=== PATIENT | female | born 1980 | race Caucasian/White ===

== ENCOUNTER 2023-08-14 00:38 | Emergency (ER) | payer BC, SELFPAY ==
[2023-08-14 00:49] VITALS: BP 155/104; PULSE 99; RESP 18; TEMP 36.6; O2SAT 98; BMI 38.4
--- NOTE | 2023-08-14 02:12 | ED.GENADULT ---
HPI - General Adult General Chief complaint: Hypertension Stated complaint: High Blood Pressure Time Seen by Provider: 08/14/23 00:44 History of Present Illness HPI narrative: hx of hypertension, on lisinopril. starting Tuesday started feeling woozy and a headache, seen in UC on Tuesday and dx with a migraine. tonight was checking BP due to it being elevated on Tuesday and got reading 181 /131, multiple other high readings. patient called triage line and was advised to be seen in ED. c/o headache. patient has chronic migrains but states this doesn't feel like her typical migraine symptoms 43-year-old woman presenting to the emergency department with concern of high blood pressure and headache. Does apparently have a history of migraines but this headache feels atypical. Seen a few days ago in urgent care. Was to monitor blood pressures thinking that headaches would be related to blood pressure. Was also given indomethacin if needed as well. With repeated high readings called triage line and advised to the emergency department. Does have headache. And has intermittently been feeling ?woozy?. No visual disturbance. No focal weakness. No fever. Related Data Home Medications ?Medication ?Instructions ?Recorded ?Confirmed baclofen 10 mg tablet 10 mg PO BID 08/10/23 08/14/23 divalproex 250 mg tablet,delayed 250 mg PO BID 08/10/23 08/14/23 release fluconazole 150 mg tablet 150 mg PO ONCE 08/10/23 08/10/23 levothyroxine 25 mcg tablet 25 mcg PO DAILY 08/10/23 08/14/23 lisinopril 20 mg tablet 20 mg PO DAILY 08/10/23 08/14/23 lorazepam 0.5 mg tablet mg PO 08/10/23 08/10/23 naproxen 500 mg tablet 500 mg PO BID 08/10/23 08/14/23 rimegepant 75 mg disintegrating mg PO 08/10/23 08/10/23 tablet (Nurtec ODT) semaglutide (weight loss) 2.4 mg subcut 08/10/23 08/10/23 mg/0.75 mL subcutaneous pen injector (Yazmin) venlafaxine 150 mg mg PO 08/10/23 08/10/23 capsule,extended release 24 hr Previous Rx's ?Medication ?Instructions ?Recorded indomethacin 25 mg capsule 25 mg PO TID #30 caps 08/10/23 amlodipine 5 mg tablet 5 mg PO DAILY #30 tabs 08/14/23 Allergies Allergy/AdvReac Type Severity Reaction Status Date / Time promethazine AdvReac Intermediate Verified 08/10/23 14:49 Review of Systems Status of ROS: Reports: 6 or more systems reviewed and unremarkable except as noted in History and below PFSH PFSH Social History Smoking Status: Never smoker Non-prescribed substance use: denies use Exam Narrative: Exam Narrative: Pleasant. Appears uncomfortable. Blood pressure noted initially 155/104. Cranial nerves 2-12 are intact. Pupils are brisk and equal. Moving all extremities without difficulty. Lungs are clear. Heart in elevated rate but regular rhythm. Extremities are without notable edema. Neck is supple. Const: Vital Signs, click to edit/add: Vital Signs - 24 hr 08/14/23 00:49 08/14/23 03:51 Temperature 97.8 F Pulse Rate [Pulse Oximeter] 99 83 Respiratory Rate 18 16 [facility] 155/104 H 146/88 H Pulse Oximetry 98 100 Oxygen Delivery Me thod Room Air Room Air Documenting provider has reviewed patient's vital signs: yes Course Vital Signs Vital signs: Initial Vital Signs Temperature 97.8 F 08/14/23 00:49 Temperature Source Temporal Artery Scan 08/14/23 00:49 Pulse Rate 99 08/14/23 00:49 Respiratory Rate 18 08/14/23 00:49 Blood Pressure 155/104 H 08/14/23 00:49 Blood Pressure Mean 121 H 08/14/23 00:49 Blood Pressure Position Sitting 08/14/23 00:49 Pulse Oximetry 98 08/14/23 00:49 Oxygen Delivery Method Room Air 08/14/23 00:49 Vital Signs Temperature 97.8 F 08/14/23 00:49 Pulse Rate 99 08/14/23 00:49 Respiratory Rate 18 08/14/23 00:49 Blood Pressure 155/104 H 08/14/23 00:49 Pulse Oximetry 98 08/14/23 00:49 Oxygen Delivery Method Room Air 08/14/23 00:49 Temperature 97.8 F 08/14/23 00:49 Pulse Rate 83 08/14/23 03:51 Respiratory Rate 16 08/14/23 03:51 Blood Pressure 146/88 H 08/14/23 03:51 Pulse Oximetry 100 08/14/23 03:51 Oxygen Delivery Method Room Air 08/14/23 03:51 Medications Administered Medications: Discontinued Medications Generic Name Dose Route Start Last Admin Trade Name Tino PRN Reason Stop Dose Admin Amlodipine Besylate 5 mg 08/14/23 04:15 08/14/23 04:40 Amlodipine 5 Mg Tablet PO 08/14/23 04:16 5 mg ONCE ONE Administration Sodium Chloride 1,000 mls @ 1,000 mls/hr 08/14/23 02:24 08/14/23 03:52 0.9 % Sodium Chloride 1000 Ml IV 08/14/23 03:23 Infused .Q1H ONE Infusion Ketorolac Tromethamine 20 mg 08/14/23 02:24 08/14/23 04:33 Ketorolac 15 Mg/Ml Inj IVP 08/14/23 02:25 Not Given ONCE ONE Ketorolac Tromethamine 30 mg 08/14/23 03:26 08/14/23 02:40 Ketorolac 30 Mg/Ml Inj IVP 08/14/23 03:27 30 mg ONCE ONE Administration Medical Decision Making MDM Narrative Medical decision making narrative: I think it would be reasonable to check a secondary labs related to elevated blood pressure/urgency/emergency. I do not see symptoms otherwise consistent with hypertensive emergency but has been trending to needing more treatment for her high blood pressure. Headaches and what may be associated malaise may certainly be related in someone already prone. Symptoms not appear to be of infectious etiology. Will also treat her headache here today. Given normal saline and ketorolac. Not exactly nauseated and antiemetic was not given. Labs are reassuring. Good renal function. Did check TSH as well and this is within goal. This was apparently in question is whether not might have been hyperthyroid at last visit. With persistently elevated systolic and diastolic elevated readings, I think amlodipine might be helpful. Discussed potential side effects. Gave 1st dose here in the emergency department. Vitals overall reassuring prior to departure. See patient discharge plan for further discussion Medical Records Medical records reviewed: Yes I reviewed the patient's medical records Lab Data Lab results reviewed: Yes I reviewed the patient's lab results Labs: Lab Results 08/14/23 08/14/23 Range/Units 02:24 02:38 Sodium 137 (135-149) mmol/L Potassium 3.7 (3.6-5.1) mmol/L Chloride 101 (96-114) mmol/L Carbon Dioxide 30 (20-32) mmol/L Anion Gap 6 L (7-15) mEq/L BUN 11 (5-24) mg/dL Creatinine 0.6 (0.5-1.5) mg/dL Estimated Creat Clear 94.63 Estimated GFR 113 ml/min Glucose 89 (60-115) mg/dL Calcium 9.0 (8.4-10.6) mg/dL Magnesium 2.2 (1.5-2.6) mg/dL C-Reactive Protein < 0.5 L (0.5-1.0) mg/dL TSH 3.950 (0.270-4.20) uIU/mL Urine Color Yellow (Yellow) Urine Appearance Clear (Clear) Urine pH 6.5 (5.0-8.5) Ur Specific [place] 1.010 (1.000-1.030) Urine Protein Negative (Negative) Urine Glucose (UA) Negative (Negative) Urine Ketones Negative (Negative) Urine Blood Negative (Negative) Urine Nitrite Negative (Negative) Urine Bilirubin Negative (Negative) Urine Urobilinogen 0.2 (0.2-1.0) Ur Leukocyte Esterase Negative (Negative) Urine RBC 0-2 (0-2) Urine WBC 0-2 (0-5) Ur Squamous Epith Cells None (None-Few) Urine Bacteria None (None) ECG Data Attestation: I personally reviewed and interpreted this ECG as follows: (Normal sinus rhythm at 75) Discharge Plan Discharge Clinical Impression: Hypertension, Headache Patient Disposition: Home w/ Parent or Adult Condition: Improved Additional Instructions: Perhaps it is indeed time to begin a controller medication for your headache. It is possible the amlodipine can help in that regard. I would discuss this further with your neurologist. Would consider checking your blood pressure once after period of rest every other day over this coming week. Follow up in primary care with these numbers. If blood pressure clearly not in goal, after a week or 2, can increase amlodipine to 5 mg 2 times daily or 10 mg once daily. Again, discuss with primary care. Return for markedly worse headache, associated discoordination or fever, new and focal weakness Your TSH was 3.95 today Prescriptions: New amlodipine 5 mg tablet 5 mg PO DAILY Qty: 30 0RF No Action fluconazole 150 mg tablet 150 mg PO ONCE Wegovy 2.4 mg/0.75 mL pen injector subcut levothyroxine 25 mcg tablet 25 mcg PO DAILY naproxen 500 mg tablet 500 mg PO BID lorazepam 0.5 mg tablet PO venlafaxine 150 mg capsule,extended release 24hr PO baclofen 10 mg tablet 10 mg PO BID lisinopril 20 mg tablet 20 mg PO DAILY Nurtec ODT 75 mg tablet,disintegrating PO divalproex 250 mg tablet,delayed release (DR/EC) 250 mg PO BID indomethacin 25 mg capsule 25 mg PO TID Qty: 30 1RF Rx Instructions: administer with food or milk Follow Up/Referrals: Olamide Martinez PA-C [Primary Care Provider] - Stand Alone [facility]: [facility] Info Inst[facility]
[2023-08-14] MEDS: KETOROLAC 30 MG/ML inj IVP (02:40)
[2023-08-14] MEDS: 0.9 % SODIUM CHLORIDE 1000 ml 1,000 ML IV (02:40)
[2023-08-14 03:06] LABS: Appearance Urine Clear (Clear); Bilirubin Urine Negative (Negative); Blood Urine Negative (Negative); Color Urine Yellow (Yellow); Glucose Urine Negative (Negative); Ketones Urine Negative (Negative); Leukocyte Esterase Urine Negative (Negative); Nitrite Urine Negative (Negative); Protein Urine Negative (Negative); Urobilinogen Urine 0.2 (0.2-1.0); pH Urine 6.5 (5.0-8.5)
[2023-08-14 03:30] LABS: Chloride* 101 mmol/L (96-114); Potassium* 3.7 mmol/L (3.6-5.1); Sodium* 137 mmol/L (135-149)
[2023-08-14 03:32] LABS: Creatinine* 0.6 mg/dL (0.5-1.5); Est. Creatinine Clearance* 94.63; Estimated Glomerular Filt Rate 113 ml/min
[2023-08-14 03:33] LABS: Anion Gap 6 mEq/L (7-15); Blood Urea Nitrogen* 11 mg/dL (5-24); Carbon Dioxide* 30 mmol/L (20-32); Glucose* 89 mg/dL (60-115)
[2023-08-14 03:34] LABS: Magnesium* 2.2 mg/dL (1.5-2.6)
[2023-08-14 03:36] LABS: RBC Urine 0-2 (0-2); WBC Urine 0-2 (0-5)
[2023-08-14 03:36] LABS: C Reactive Protein* < 0.5 mg/dL (0.5-1.0)
[2023-08-14 03:51] VITALS: BP 146/88; PULSE 83; RESP 16; O2SAT 100
[2023-08-14] MEDS: AMLODIPINE 5 MG TABLET PO (04:40)
== END 2023-08-14 04:42 | disposition home or self-care (01) ==
PROVIDERS: Emergency Provider Family Medicine; PCP Physician Assistant Medical
DX: R51.9 Headache, unspecified (principal); I10 Essential (primary) hypertension
CPT/HCPCS: 36415; 80048; 81001; 83735; 84443; 86140; 93005; 96374; 99284; A9270; J1885; J7030

== ENCOUNTER 2023-12-29 10:06 | Emergency (ER) | payer BC, SELFPAY ==
[2023-12-29 10:09] VITALS: BP 131/88; PULSE 87; RESP 16; TEMP 36.4; O2SAT 97; BMI 36.9
--- NOTE | 2023-12-29 10:26 | ED_ITS ---
HPI - Abdominal Pain General Time Seen by Provider: 10:27 Date Seen: 12/29/23 Chief Complaint: Abdominal Pain Stated Complaint: pain in stomach, nause, vomit Time Seen by Provider: 12/29/23 10:26 Source: patient and RN notes reviewed Mode of arrival: ambulatory Limitations: no limitations History of Present Illness HPI narrative: This 43-year-old female is coming in with epigastric to left upper abdominal pain that has been progressive over the last 2 and half weeks. She has been on Wegovy for about a year or so, no recent increased dosage. She takes her injec tions on Fridays, did use this this past Tuesday. She has been getting worked up in clinic, has had a negative stool H pylori for ulcer disease. She has been on a proton pump inhibitor for about 10 days without any change in symptoms. It initially started with nausea in the morning. She did confirm a negative home test, did subsequently get her menstrual cycle after that. She has been unable to eat anything for 3 days now. She is wondering if it is pancreatitis as a side effect of her medicine. She has not had her lipase drawn in clinic. She states she does have a history of elevated liver enzymes which they thought was from her migraine medicine, she did get this switched. She has had her gallbladder removed and her appendix removed. There have been no fevers or chills. No change in bowel habits, states no concerning diarrhea, no urinary symptoms, no history kidney stones. Related Data Home Medications ?Medication ?Instructions ?Recorded ?Confirmed baclofen 10 mg tablet 10 mg PO BID 08/10/23 12/29/23 levothyroxine 25 mcg tablet 25 mcg PO DAILY 08/10/23 08/14/23 lisinopril 20 mg tablet 20 mg PO DAILY 08/10/23 12/29/23 lorazepam 0.5 mg tablet mg PO 08/10/23 08/10/23 naproxen 500 mg tablet 500 mg PO BID 08/10/23 12/29/23 rimegepant 75 mg disintegrating mg PO 08/10/23 08/10/23 tablet (Nurtec ODT) semaglutide (weight loss) 2.4 mg subcut 08/10/23 08/10/23 mg/0.75 mL subcutaneous pen injector (Wegovy) venlafaxine 150 mg mg PO 08/10/23 08/10/23 capsule,extended release 24 hr atogepant 60 mg tablet (Qulipta) mg PO 12/29/23 levothyroxine 75 mcg tablet 75 mcg PO DAILY 12/29/23 12/29/23 liothyronine 5 mcg tablet mcg PO 12/29/23 Previous Rx's ?Medication ?Instructions ?Recorded ketorolac 10 mg tablet 10 mg PO Q6H PRN pain #20 tabs 12/29/23 ondansetron 4 mg disintegrating 4 mg PO Q6H PRN nausea and 12/29/23 tablet vomiting #20 tabs oxycodone 5 mg tablet 5 mg PO Q6H PRN pain #10 tabs 12/29/23 Allergies Allergy/AdvReac Type Severity Reaction Status Date / Time promethazine AdvReac Intermediate Verified 12/29/23 11:36 Review of Systems Status of ROS Reports: 6 or more systems reviewed and unremarkable except as noted in History and below PFSH [facility] Social History Smoking Status: Never smoker How often do you have a drink containing alcohol: never How often do you have six or more drinks on one occasion: Never AUDIT-C Alcohol total score: 0 Non-prescribed substance use: denies use Exam Const: Vital Signs, click to edit/add: Vital Signs - 24 hr 12/29/23 10:09 12/29/23 10:34 12/29/23 12:11 Temperature 97.6 F 98.3 F Pulse Rate [Pulse Oximeter] 87 70 Respiratory Rate 16 18 Blood Pressure [Ri ght Upper Arm] 131/88 112/71 Pulse Oximetry 97 97 98 Oxygen Delivery Me thod Room Air Room Air This 43-year-old female is alert, interactive, no apparent distress but looks uncomfortable. Sclera clear, conjugate gaze, symmetrical facial function. Speech is normal. Lungs are clear, good air entry, no wheezing or crackles, no tachypnea. CV regular rate and rhythm, no murmur, normal S1-S2, no S3-S4. Abdomen is soft, nondistended, bowel sounds are present, no organomegaly, no masses. She has mild left upper quadrant tenderness without any rebound or guarding, no epigastric tenderness at this time. Moving extremities, skin visualized without any abnormality. Patient was ambulatory into the ED of her own accord. Documenting provider has reviewed patient's vital signs: yes Course Course ED Course: Discussed with patient doing laboratory evaluation with CBC, comprehensive metabolic panel on looking at pancreatic enzymes. Given her pain, even if pancreatic enzymes are normal, it is likely that we would proceed to CT imaging to ensure that we are not missing any acute intra-abdominal pathology. Thus, with patient agreement, CT of her abdomen with IV contrast is ordered. Will give her some pain management with morphine and nausea management with Zofran IV. To be monitored on pulse oximetry. We did discuss that pancreatitis is certainly complication of her medicine. We do see patients with abdominal pain from this medicine that is just a side effect and not pancreatitis however. Reevaluation(s) Time of Reevaluation #1: 12:05 Reevaluation #1: Did review with patient her CT, provided copy of the report. No evidence of any acute intra-abdominal process. Did review normal lipase, no pancreatitis from her medication. Liver enzymes remain elevated, do not know previous levels. W ill defer to primary provider and further followup outpatient for these. Zofran helped nausea but she really hasn't noticed a change with morphine for the pain. She is not consistently trying anything at home, only if pain is really bad. We will try dose of Toradol here and see if that helps, could go home with oral prescription if helpful here. She will likely just need to wait this out and a llow the Wegovy to leave her system. This is very likely just side effects of the medication. Vital Signs Vital signs: Initial Vital Signs Temperature 97.6 F 12/29/23 10:09 Temperature Source Temporal Artery Scan 12/29/23 10:09 Pulse Rate 87 12/29/23 10:09 Respiratory Rate 16 12/29/23 10:09 Blood Pressure 131/88 12/29/23 10:09 Blood Pressure Mean 102 12/29/23 10:09 Blood Pressure Position Sitting 12/29/23 10:09 Pulse Oximetry 97 12/29/23 10:09 Oxygen Delivery Method Room Air 12/29/23 10:09 Vital Signs Temperature 97.6 F 12/29/23 10:09 Pulse Rate 87 12/29/23 10:09 Respiratory Rate 16 12/29/23 10:09 Blood Pressure 131/88 12/29/23 10:09 Pulse Oximetry 97 12/29/23 10:09 Oxygen Delivery Method Room Air 12/29/23 10:09 Temperature 98.3 F 12/29/23 12:11 Pulse Rate 70 12/29/23 12:11 Respiratory Rate 18 12/29/23 12:11 Blood Pressure 112/71 12/29/23 12:11 Pulse Oximetry 98 12/29/23 12:11 Oxygen Delivery Method Room Air 12/29/23 12:11 Medications Administered Medications: Discontinued Medications Generic Name Dose Route Start Last Admin Trade Name Tino PRN Reason Stop Dose Admin Ketorolac Tromethamine 15 mg 12/29/23 12:08 12/29/23 12:16 Ketorolac 15 Mg/Ml Inj IVP 12/29/23 12:09 15 mg ONCE ONE Administration Morphine Sulfate 2 mg 12/29/23 10:34 12/29/23 11:08 Morphine 2 Mg/Ml Inj IVP 12/29/23 10:35 2 mg ONCE ONE Administration Ondansetron HCl 4 mg 12/29/23 10:34 12/29/23 11:08 Ondansetron 2 Mg/Ml Inj IVP 12/29/23 10:35 4 mg ONCE ONE Administration MDM - Abdominal Pain Lab Data Attestation: I reviewed the patient's lab results. Labs: Lab Results 12/29/23 Range/Units 10:45 WBC 6.88 (4.50-11.00) K/uL RBC 4.82 (4.00-5.20) m/uL Hgb 14.3 (12.0-16.0) gm/dL Hct 42.3 (33.0-51.0) % MCV 88 (80-100) fL MCH 30 (26-34) pg MCHC 34 (32-36) gm/dL RDW Coeff of Christy 11.9 (11.5-15.5) % Plt Count 299 (140-440) K/uL Neut % (Auto) 64.3 (42.0-72.0) % Lymph % (Auto) 23.7 (20-44) % [place] % (Auto) 8.7 (0.0-11.0) % Eos % (Auto) 2.5 (0.0-7.0) % Baso % (Auto) 0.7 (0.0-3.0) % Neut # (Auto) 4.42 (1.7-7.0) K/uL Lymph # (Auto) 1.63 (0.90-2.90) K/uL [place] # (Auto) 0.60 (0.00-0.90) K/UL Eos # (Auto) 0.17 (0.00-0.50) K/uL Baso # (Auto) 0.05 (0.00-0.30) K/uL Abs Immat Gran (auto) 0.01 (0.00-0.30) K/uL Imm/Tot Granulo (auto) 0.1 % Sodium 136 (135-149) mmol/L Potassium 3.7 (3.6-5.1) mmol/L Chloride 102 (96-114) mmol/L Carbon Dioxide 25 (20-32) mmol/L Anion Gap 9 (7-15) mEq/L BUN 18 (5-24) mg/dL Creatinine 0.6 (0.5-1.5) mg/dL Estimated Creat Clear 94.63 Estimated GFR 113 ml/min Glucose 98 (60-115) mg/dL Lactate 1.0 (0.5-1.9) mmol/L Calcium 8.9 (8.4-10.6) mg/dL Total Bilirubin 0.5 (0.1-1.5) mg/dL Direct Bilirubin 0.2 (0.0-0.5) mg/dL AST 217 H (12-35) U/L ALT 199 H (4-35) U/L Alkaline Phosphatase 99 (40-150) U/L C-Reactive Protein 0.6 (0.5-1.0) mg/dL Total Protein 7.0 (6.0-8.3) g/dL Albumin 4.1 (3.3-5.0) g/dL Amylase 79 (18-89) U/L Lipase 83 (23-300) U/L Imaging Data CT scan - abdomen: Attestation: I have reviewed the pertinent imaging results. Radiologist's impression: Patient: JADE BESSYSZGARO Facility:?[facility] Patient ID:?[id number] Site Patient ID:?[id number]. Site :?[id number] Study:?CT-Abdomen/Pelvis 110CC ISOVUE 370-12/29/2023 11:36:10 AM Ordering Physician:Lalito Weiner Final Report: INDICATION: Severe epigastric left upper quadrant pain TECHNIQUE: CT abdomen and pelvis acquired with 110 cc Isovue 370 IV contrast. COMPARISON: None. FINDINGS: Lower chest: Unremarkable. Liver: Unremarkable. Gallbladder and bile ducts: Cholecystectomy. No biliary ductal dilation. Pancreas: Unremarkable. Spleen: There is a 0.4 centimeter hypodense lesion in the spleen (2/42), which is too small to characterize and may represent cyst or hemangioma. Adrenal glands: Unremarkable. No nodules. Kidneys: Bilateral subcentimeter hypodense lesions, likely cysts. GI tract: No obstruction. No bowel wall thickening. Appendectomy. Vasculature: Abdominal aorta is normal in caliber. Mesenteric arteries are patent. Stent in the left common iliac vein. Evaluation for patency is limited due to contrast phase timing. Lymph nodes: No lymphadenopathy. Peritoneum/Abdominal Wall: Unremarkable. No sign of mass or infiltration. No free air or significant free fluid. Pelvis: IUD in the uterus. Bones: Sclerotic lesion in L3 likely represents bone island. Mild degenerative disease of the spine, most severe at L5-S1. IMPRESSION: No acute intra-abdominal or intrapelvic pathology to explain symptoms. Please note that all CT scans at this facility use dose modulation, iterative reconstruction, and/or weight-based dosing when appropriate to reduce radiation dose to as low as reasonably achievable. Dictated by Shi Wright MD @ 12/29/2023 11:57:36 AM (Electronic Signature) Discharge Plan Discharge Clinical Impression: Nausea, Medication side effects, Elevated liver enzymes Abdominal pain Qualifiers: Abdominal location: left upper quadrant Qualified Code(s): R10.12 - Left upper quadrant pain Patient Disposition: Home, Self-Care Condition: Stable Instructions: Acute Nausea and Vomiting (ED), Abdominal Pain (ED) Additional Instructions: The symptoms you are experiencing are very likely just side effects from the Wegovy. I do not recommend that you take this again. Please schedule follow-up with your primary care provider. I have written for some Toradol and oxycodone to try to help your pain. Zofran is also sent in for help with nausea. Symptoms should continue to improve the further you are away from taking this medicine. Your liver functions do remain elevated, please review this with your primary care at follow-up as well. This may need further evaluation, consideration for GI referral. Activity Level: Activity as Tolerated Prescriptions: New ketorolac 10 mg tablet 10 mg PO Q6H PRN (Reason: pain) Qty: 20 0RF Rx Instructions: maximum total duration of 5 days from all oral, intranasal, or parenteral formulations, hold other NSAIDS while using this medication oxycodone 5 mg tablet 5 mg PO Q6H PRN (Reason: pain) Qty: 10 0RF ondansetron 4 mg tablet,disintegrating 4 mg PO Q6H PRN (Reason: nausea and vomiting) Qty: 20 0RF No Action Wegovy 2.4 mg/0.75 mL pen injector subcut levothyroxine 25 mcg tablet 25 mcg PO DAILY naproxen 500 mg tablet 500 mg PO BID lorazepam 0.5 mg tablet PO venlafaxine 150 mg capsule,extended release 24hr PO baclofen 10 mg tablet 10 mg PO BID lisinopril 20 mg tablet 20 mg PO DAILY Nurtec ODT 75 mg tablet,disintegrating PO liothyronine 5 mcg tablet PO levothyroxine 75 mcg tablet 75 mcg PO DAILY Qulipta 60 mg tablet PO Follow Up/Referrals: Olamide Martinez PA-C [Primary Care Provider] - Stand Alone Forms: [facility] Info Instructions
[2023-12-29 10:34] VITALS: O2SAT 97
--- NOTE | 2023-12-29 10:34 | CRLHL7_ITS ---
For Patients: As a result of the Century Cures Act, medical imaging exams and procedure reports are released immediately into your electronic medical record. You may view this report before your referring provider. If you have questions, please contact your health care provider. INDICATION: Severe epigastric left upper quadrant pain TECHNIQUE: CT abdomen and pelvis acquired with 110 cc Isovue 370 IV contrast. COMPARISON: None. FINDINGS: Lower chest: Unremarkable. Liver: Unremarkable. Gallbladder and bile ducts: Cholecystectomy. No biliary ductal dilation. Pancreas: Unremarkable. Spleen: There is a 0.4 centimeter hypodense lesion in the spleen (2/42), which is too small to characterize and may represent cyst or hemangioma. Adrenal glands: Unremarkable. No nodules. Kidneys: Bilateral subcentimeter hypodense lesions, likely cysts. GI tract: No obstruction. No bowel wall thickening. Appendectomy. Vasculature: Abdominal aorta is normal in caliber. Mesenteric arteries are patent. Stent in the left common iliac vein. Evaluation for patency is limited due to contrast phase timing. Lymph nodes: No lymphadenopathy. Peritoneum/Abdominal Wall: Unremarkable. No sign of mass or infiltration. No free air or significant free fluid. Pelvis: IUD in the uterus. Bones: Sclerotic lesion in L3 likely represents bone island. Mild degenerative disease of the spine, most severe at L5-S1. IMPRESSION: No acute intra-abdominal or intrapelvic pathology to explain symptoms. Please note that all CT scans at this facility use dose modulation, iterative reconstruction, and/or weight-based dosing when appropriate to reduce radiation dose to as low as reasonably achievable. Dictated by Shi Wright MD @ 12/29/2023 11:57:36 AM (Electronically Signed)
[2023-12-29 10:52] LABS: Basophils Absolute Auto 0.05 K/uL (0.00-0.30); Basophils Percent Auto 0.7 % (0.0-3.0); Eosinophils Absolute Auto 0.17 K/uL (0.00-0.50); Eosinophils Percent Auto 2.5 % (0.0-7.0); Hematocrit 42.3 % (33.0-51.0); Hemoglobin* 14.3 gm/dL (12.0-16.0); Immature Granulocytes Abs Auto 0.01 K/uL (0.00-0.30); Immature Granulocytes Pct Auto 0.1 %; Lymphocytes Absolute Auto 1.63 K/uL (0.90-2.90); Lymphocytes Percent Auto 23.7 % (20-44); Mean Corpuscular HGB Conc 34 gm/dL (32-36); Mean Corpuscular Hemoglobin 30 pg (26-34); Mean Corpuscular Volume 88 fL (80-100); Monocytes Percent Auto 8.7 % (0.0-11.0); Neutrophils Absolute Auto 4.42 K/uL (1.7-7.0); Neutrophils Percent Auto 64.3 % (42.0-72.0); Platelet Count* 299 K/uL (140-440); RDW Coefficient of Variation % 11.9 % (11.5-15.5); Red Blood Count 4.82 m/uL (4.00-5.20); White Blood Count* 6.88 K/uL (4.50-11.00)
[2023-12-29 10:58] LABS: Slide Review Reflex No
[2023-12-29] MEDS: ONDANSETRON 2 MG/ML inj 4 MG IVP (11:08)
[2023-12-29] MEDS: MORPHINE 2 MG/ML inj IVP (11:08)
[2023-12-29 11:11] LABS: Albumin* 4.1 g/dL (3.3-5.0); Chloride* 102 mmol/L (96-114); Sodium* 136 mmol/L (135-149)
[2023-12-29 11:12] LABS: Potassium* 3.7 mmol/L (3.6-5.1)
[2023-12-29 11:14] LABS: Amylase* 79 U/L (18-89); Anion Gap 9 mEq/L (7-15); Carbon Dioxide* 25 mmol/L (20-32); Creatinine* 0.6 mg/dL (0.5-1.5); Est. Creatinine Clearance* 94.63; Estimated Glomerular Filt Rate 113 ml/min
[2023-12-29 11:15] LABS: Alanine Aminotransferase* 199 U/L (4-35); Alkaline Phosphatase* 99 U/L (40-150); Aspartate Amino Transferase* 217 U/L (12-35); Bilirubin Direct* 0.2 mg/dL (0.0-0.5); Bilirubin Total* 0.5 mg/dL (0.1-1.5); Blood Urea Nitrogen* 18 mg/dL (5-24); Calcium* 8.9 mg/dL (8.4-10.6); Glucose* 98 mg/dL (60-115); Lipase* 83 U/L (23-300)
[2023-12-29 11:17] LABS: C Reactive Protein* 0.6 mg/dL (0.5-1.0)
[2023-12-29 12:11] VITALS: BP 112/71; PULSE 70; RESP 18; TEMP 36.8; O2SAT 98
[2023-12-29] MEDS: KETOROLAC 15 MG/ML inj IVP (12:16)
== END 2023-12-29 12:56 | disposition home or self-care (01) ==
PROVIDERS: Emergency Provider Family Medicine; PCP Physician Assistant Medical
DX: R10.12 Left upper quadrant pain (principal); T50.995A Adverse effect of other drugs, medicaments and biological substances, initial encounter; R94.5 Abnormal results of liver function studies
CPT/HCPCS: 36415; 74177; 80053; 82150; 82248; 83605; 83690; 85025; 86140; 94761; 96374; 96375; 99284; J1885; J2270; J2405; Q9967

== ENCOUNTER 2024-08-21 07:56 | Outpatient (CLI) | payer BC, SELFPAY ==
--- OUTSIDE RECORDS SUMMARY | 2024-08-21 08:26 | XMS_ITS | Data Portability ---
Author Organization [place] - [facility], [employer] - [employer] [facility] Address [address] [place] [address] Assessment Encounter Date Assessment Date Assessment LastModified by Organization Details LastModified Time 02/13/2024 02/13/2024 ASSESSMENT: Patient is a good candidate for conservative care and the prognosis is for a favorable outcome that achieves the patients' goals. We discussed etiology, activity modifications, home care, and other treatment options. Initially, it is recommended that the patient receive in-office treatment 1 times per week for 8 weeks at which time a re-evaluation will be performed to determine an appropriate change in plan. Initially, treatment will focus on joint manipulation to restore range of motion and reduce pain. We will slowly progress to therapeutic exercises and activities to improve function, strength, and stability may also be used as warranted. If the patient is not responding as expected, more invasive procedures will be discussed along with a referral. All considerations above were discussed with the patient and questions answered to satisfaction. If the patient should have any additional questions, or should the condition evolve or worsen, the patient should not hesitate to contact our office. Not available 02/13/2024 14:44:20 06/21/2024 06/21/2024 ASSESSMENT: Patient is a good candidate for conservative care and the prognosis is for a favorable outcome that achieves the patients' goals. We discussed etiology, activity modifications, home care, and other treatment options. Initially, it is recommended that the patient receive in-office treatment 1 times per week for 8 weeks at which time a re-evaluation will be performed to determine an appropriate change in plan. Initially, treatment will focus on joint manipulation to restore range of motion and reduce pain. We will slowly progress to therapeutic exercises and activities to improve function, strength, and stability may also be used as warranted. If the patient is not responding as expected, more invasive procedures will be discussed along with a referral. All considerations above were discussed with the patient and questions answered to satisfaction. If the patient should have any additional questions, or should the condition evolve or worsen, the patient should not hesitate to contact our office. Not available 06/21/2024 18:32:52 Plan of Treatment Reminders Order Date Submit Date Provider Last Modified By Organization Details Last Modified Time Details Appointments None record ed. Lab None record ed. Referral None record ed. Procedures None record ed. Surgeries None record ed. Imaging None record ed. Medication Orders None record ed. Patient TargetsNo targets recorded. Patient InstructionsNo instructions recorded. Reason for Referral None Reported. Problems Name Problem SNOMED Code Status Onset Date Resolution Date Notes Provider Name and Address Organization Details Recorded Time Low back pain 011642855 Active 2024 [place] [address], [place], [address], [facility] 18:32:53 Somatic dysfunction of sacral spine 432861107 Active 2024 [place]lin [place] [address], [place], [address], [facility] 18:32:53 Neck pain 27777009 Active 2023 Merlin [place]COR[place], [place] [address], [place], [address], [facility] 4 14:44:23 Lumbar segmental dysfunction 260712009 Active 2023 Merlin [place], [place] [address], [place], [address], [facility] 4 14:44:23 Thoracic segmental dysfunction 877737272 Active 2023 Merlin [place], [place] [address], [place], [address], [facility] 4 14:44:23 Lesion of lumbar spine 462051006 Active 2023 Merlin Foster [place] [address], [place], [address], [facility] 4 14:44:23 Cervical segmental dysfunction 514476307 Active 2023 Merlin Foster [place] [address], [place], [address], [facility] 4 14:44:23 Problem Notes None recorded. Procedures Surgical History Date Name Laterality Status Provider Name and Address Organization Details Recorded Time 5 67443: Spinal manipulation , 3 to 4 regions completed [facility] Raman Foster [place] [address], [place], [address], [facility] 06/21/2024 18:32:52 4 [address]: Spinal manipulation , 3 to 4 regions completed [facility] Raman Cristian [place] [address], [place], [address], [facility] 02/13/2024 14:44:50 Imaging Results None recorded. Procedure Notes None recorded. Medical Equipment None Reported. Medications Name Sig Start Date Stop Date Status Note LastModified by Organization Details LastModified Time prednisone 10 mg tablet TAKE 3 TABLETS BY MOUTH DAILY FOR 2 DAYS THEN TAKE 2 TABLETS BY MOUTH DAILY FOR 2 DAYS THEN TAKE 1 TABLET BY MOUTH DAILY WITH A MEAL FOR 2 DAYS active Not Available Not Available N ot Available ondansetron HCl 4 mg tablet TAKE 1 TABLET BY MOUTH EVERY 8 HOURS NEEDED FOR NAUSEA OR VOMITING active Not Available Not Available No t Available amlodipine 5 mg tablet TAKE 1 TABLET BY MOUTH DAILY active Not Available Not Available Not Available liothyronine 5 mcg tablet TAKE 2 TABLETS BY MOUTH EVERY MORNING active Not Available Not Available No t Available ketorolac 10 mg tablet TAKE 1 TABLET BY MOUTH EVERY 6HR NEEDED FOR PAIN. HOLD OTHER NSAIDS WHILE TAKING THIS MEDICATION active Not Available Not Available N ot Available benzonatate 100 mg capsule TAKE 1 CAPSULE BY MOUTH THREE TIMES DAILY NEEDED active Not Available Not Available No t Available oseltamivir 75 mg capsule TAKE 1 CAPSULE BY MOUTH TWICE DAILY DIRECTED active Not Available Not Available No t Available indomethacin 25 mg capsule TAKE 1 CAPSULE BY MOUTH THREE TIMES DAILY WITH FOOD OR MILK active Not Available Not Available No t Available methylpredni solone 4 mg tablets in a dose pack FOLLOW PACKAGE DIRECTIONS active Not Available Not Available N ot Available albuterol sulfate HFA 90 mcg/actuatio n aerosol inhaler INHALE 1 TO 2 PUFFS BY MOUTH EVERY 4 HOURS NEEDED FOR SHORTNESS OF BREATH OR WHEEZING active Not Available Not Available Not Available ondansetron 4 mg disintegrati ng tablet DISSOLVE 1 TABLET ON THE TONGUE EVERY 6 HOURS NEEDED FOR NAUSEA OR VOMITING active Not Available Not Available No t Available oxycodone 5 mg tablet TAKE 1 TABLET BY MOUTH EVERY 6 HOURS NEEDED FOR PAIN active Not Available Not Available No t Available Nurtec ODT 75 mg disintegrati ng tablet PLACE 1 TABLET ON THE TONGUE ONCE DAILY IF NEEDED FOR HEADACHE. TAKE ON ONSET OF HEADACHE active Not Available Not Available No t Available Wegovy 2.4 mg/0.75 mL subcutaneous pen injector ADMINISTER 2.4 MG UNDER THE SKIN 1 TIME WEEKLY active Not Available Not Available No t Available Vitals None Recorded Social History None recorded. Functional Status None recorded. Mental Status None recorded. Family History Nothing Reported. Medical History No medical history recorded. Gynecological HistoryNo gynecological history recorded. Obstetrics History GPAL:G 0 P 0 0 0 0 Past Encounters Encounter ID Performer Location Encounter Start Date Encounter Closed Date Diagnosis/Indication Diagnosis SNOMED-CT Code Diagnosis ICD10 Code Diagnosis Note [id number] Merlin Foster [place] [facility] [address] [address] 02/13/2024 12:25:51 02/13/2024 14:52:04 Lesion of lumbar spine 542604862 M99.01 Neck pain 34369838 M54.2 Thoracic s egmental dysfunction 185426401 M99.02 Lumbar seg mental dysfunction 350369558 M99.03 Cervical s egmental dysfunction 751406916 M99.01 [id number] Merlin Foster [place] [facility] [address] [address] 06/21/2024 11:50:59 06/21/2024 18:39:46 Lumbar segmental dysfunction 110541214 M99.03 Low back pain 971467389 M54.50 Somatic dy sfunction of sacral spine 439144277 M99.04 Thoracic s egmental dysfunction 811529945 M99.02 Health Concerns Section Related Observation LastModified by Organization Detai ls LastModified Time None Recorded Concern Status LastModified by Organization Details LastModified Time None Recorded Advance Directives Directive None Recorded Payers Insurance Date Sequence Insurance Name Policy Number Policy Cook Covered Member ID Cook Member ID Guarantor Name 06/21/2024 1 [employer] [employer] [address] Hnatyszyn [id number] Philly Hnatyszyn 02/13/2024 1 [facility] [address] M Hnatyszyn [id number] Philly Hnatyszyn Notes Date Note Type Note Provider Name and Address Organization Details Recorded Time 02/13/2024 text/html HPI - Cervical SpineReported bypatient.Location: bilateral Quality:aching Severity:moderate Duration:2 weeks Timing:gradual Alleviating Factors:ice Aggravating Factors:sitting Associated Symptoms:no numbness/tingling Mid back pain. Merlin Foster [place] [address], [place], [address], [facility] 02/13/2024 14:45:13 06/21/2024 text/html HPI - Lumbar SpineReported bypatient.Location: left Quality:aching Severity:moderate Timing:morning Aggravating Factors:walking; lifting; carrying; twisting Alleviating Factors:rest Merlin Foster [place] [address], [place], [address], [facility] 06/21/2024 18:34:21 OBGyn Episode No OBEpisode recorded.
--- OUTSIDE RECORDS SUMMARY | 2024-08-21 08:27 | XMS_ITS | Clinical Summary ---
Author Organization [facility] Address [address] [place] [id number] Care Team Providers Care Vein Pumper Name Role Phone Olamide Martinez Primary Care Provider Allergies Active Allergy Reactions Criticality Noted Date Comments Promethazine Palpitations,Other - Describe In Comment Field 09/25/2010 Jittery Medications copper (Paragard Intrauterine Copper) 380 square mm IUD Inserted 04/07/15 1 Device 021 Active CPAPIndications:O SA (obstructive sleep apnea) CPAP machine for home use at pressure 4-15cmw, nasal mask x1/3month with nasal cushion x2/mo 1 Each 11 022 Active Naltrexone, Bulk, 100 % powdIndications:C hronic fatigue As directed 3 mg. 1/2 tablet at bedtime for 2 weeks, then increase to 1 tablet for 2 weeks. Then to 1 and 1/2 tablet. Dispense 60 tablets 0.18 g 024 Active rimegepant (Nurtec ODT) 75 mg orally disintegrating tabletIndications :Patient has used Nurtec previously with great response to the medication for her migraines Place 75 mg on the tongue once daily if needed for Headache (take for onset of headache). 32 Tablet 1 024 Active ondansetron (ZOFRAN ODT) 4 mg disintegrating tabletIndications :Nausea and vomiting DISSOLVE 1 TABLET ON THE TONGUE EVERY 8 HOURS NEEDED FOR NAUSEA OR VOMITING 30 Tablet 024 Active naltrexone LOW DOSE oral custom compoundIndicatio ns:Chronic fatigue Take 1 Each by mouth two times daily. Strength: 4.5 mg tablet 90 Each 3 024 Active naproxen (NAPROSYN) 500 mg tabletIndications :Lumbar disc herniation TAKE 1 TABLET(500 MG) BY MOUTH TWICE DAILY WITH MEALS 180 Tablet 2 024 Active fluconazole (DIFLUCAN) 150 mg tabletIndications :Yeast vaginitis TAKE 1 TABLET(150 MG) BY MOUTH 1 TIME FOR 1 DOSE. REPEAT DOSE IN 4 DAYS 2 Tablet 3 024 Active LORazepam (ATIVAN) 0.5 mg tabIndications:Fl kamala phobia TAKE 1 TABLET(0.5 MG) BY MOUTH EVERY 6 HOURS NEEDED FOR ANXIETY 30 Tablet 025 Active desvenlafaxine succinate (PRISTIQ) 50 mg Extended-Release tabletIndications :Anxiety,Depressi on, major, single episode, moderate (HC) Take 1 Tablet (50 mg) by mouth once daily in the morning. 90 Tablet 3 025 Active tirzepatide, weight loss, (Zepbound) 15 mg/0.5 mL penIndications:Cl ass 3 severe obesity with body mass index (BMI) of 40.0 to 44.9 in adult, unspecified obesity type, unspecified whether serious comorbidity present (HC) Inject 15 mg subcutaneous once weekly. 025 Active phentermine (ADIPEX-P) 37.5 mg tabletIndications :Class 2 severe obesity with body mass index (BMI) of 35 to 39.9 with serious comorbidity (HC) Take 1 Tablet (37.5 mg) by mouth once daily before a meal. 30 Tablet 025 Active lisinopriL (PRINIVIL; ZESTRIL) 20 mg tabletIndications :HTN (hypertension) TAKE 1 TABLET(20 MG) BY MOUTH EVERY DAY 90 Tablet 1 025 Active liothyronine 5 mcg tabletIndications :Hypothyroidism, unspecified type 2 tablets every AM 180 Tablet 025 Active levothyroxine 88 mcg tabletIndications :Hypothyroidism, unspecified type Take 1 Tablet (88 mcg) by mouth once daily. 90 Tablet 3 025 Active atogepant (Qulipta) 10 mg tabletIndications :Intractable migraine with aura with status migrainosus Take 1 Tablet (10 mg) by mouth once daily. 30 Tablet 2 025 Active baclofen 10 mg tabletIndications :Muscle spasm TAKE 1 TABLET(10 MG) BY MOUTH TWICE DAILY 180 Tablet 3 025 Active ondansetron 4 mg tabletIndications :Nausea and vomiting, unspecified vomiting type Take 1 Tablet (4 mg) by mouth every 8 hours if needed for Nausea/Vomiting . 30 Tablet 1 025 Active baclofen (LIORESAL) 10 mg tabletIndications :Muscle spasm TAKE 1 TABLET(10 MG) BY MOUTH TWICE DAILY 180 Tablet 3 024 2024 Discontinued predniSONE 10 mg tabletIndications :Degeneration of intervertebral disc of lumbosacral region, unspecified whether pain present,Lumbar disc herniation with radiculopathy Take 4 Tablets (40 mg) by mouth once daily with a meal for 3 days, THEN 3 Tablets (30 mg) once daily with a meal for 3 days, THEN 2 Tablets (20 mg) once daily with a meal for 3 days, THEN 1 Tablet (10 mg) once daily with a meal for 3 days. 30 Tablet 025 2024 atogepant (Qulipta) 10 mg tabletIndications :Intractable migraine with aura with status migrainosus Take 1 Tablet (10 mg) by mouth once daily. 30 Tablet 2 025 2024 Discontinued(R eorder (E-cancel not sent)) Active Problems Problem Noted Date Diagnosed Date Suppurative hidradenitis- using humira 2 NAVNEET 05/21/2021 AHI-12 06/01/2021 Low libido 08/27/2020 DDD (degenerative disc disease), lumbosacral 01/2018 Overview (09/01/2017): xr demonstrates L5-S1 DDD Depression, recurrent 09/28/2016 Lorraine's disease 08/13/2014 Overview (08/13/2014): Diagnosed elsewhere 2010 Factor 5 Leiden mutation, heterozygous 5 Obesity (BMI 30-39.9) 08/08/2014 Lumbar disc herniation with radiculopathy Encounters Date Type Department Care Team Description 08/21/2024 Travel 08/18/2024 Travel 08/07/2024 3:20 PM CDT Ancillary Procedure [facility] [address] [place] [place] [id number] 08/06/2024 Travel 08/01/2024 Refill [facility] [address] [place] [id number] Olamide Martinez PA Refill Request (Baclofen) 08/01/2024 Medical Messaging [facility] [address] [facility] [place] [id number] Olamide Martinez PA Message about your results 07/30/2024 Refill [facility] [address] [place] [place] [id number] Olamide Martienz PA Refill Request (Qulipta) 07/24/2024 7:15 AM CDT Ancillary Procedure [facility] [address] [facility] [place] [id number] 07/24/2024 Travel 07/20/2024 Travel 07/13/2024 Refill [facility] [address] [facility] [place] [id number] Olamide Martinez PA Refill Request ( Qulipta) 07/10/2024 1:00 PM CDT Telemedicine [facility] and [address] [phone] O'Hayden Lord MD Follow Up; Telehealth 07/10/2024 9:50 AM CDT Office Visit [facility] [address] [place] [place] [id number] Olamide Martinez PA Back Pain (Ongoing lower back pain, didn't get better with the medrol kelin) 07/10/2024 Refill [facility] [address] [place] [id number] Olamide Martinez PA Refill Request (Qulipta 10 mg tablet ) 07/10/2024 Travel 07/09/2024 1:20 PM CDT Orders Only [facility] [address] [facility] [address] [place] [address] Lab 07/08/2024 Travel 07/01/2024 Refill [facility] [address] [place] [id number] Olamide Martinez PA Refill Request (Qulipta) 07/01/2024 Refill [facility] [address] [place] [address] Olamide Martinez PA Refill Request (Qulipta) 06/19/2024 10:30 AM CDT E-Visit [facility] [address] [facility] [place] [id number] Olamide Martinez PA eVisit for Back Pain 06/11/2024 Orders Only [facility] [address] [place] [address] Betsy'Hayden Lord MD <No scans attached> 06/05/2024 Refill [facility] [address] [place] [address] O'Hayden Lord MD Refill Request from Last 3 Months Immunizations Immunization Administration Dates Next Due AMB INFLUENZA, IIV4 (AGE=>6M OS) MABEL (Flu Clinic Only) 12/01/2018 COVID-19 VACCINE SPIKEVAX (M ODERNA 50MCG/0.5ML) 12YO+ PFS 12/10/2022 COVID-19 vaccine (Pfizer-Bio NTech 30mcg/0.3mL) PF, MDV 11/25/2023,12/12/2020,02/25/2020,2019 DTaP 09/02/2009,07/26/2006 Hepatitis B (Adult) 09/02/2009 Inactivated Polio Vaccine 01/21/2011,11/05/2010, 10/02/2010 Influenza Virus, Unspecified 11/05/2017, 11/22/2014,11/13/2012,2011,01/21/2011,01/31/2007,01/19/2006,1 02/22/2004 Influenza, IIV3 (Age 6-35 mos) 12/08/2011,2006 Influenza, IIV4 11/25/2023,11/24/2022,12/16/2016 Influenza, IIV4 (=>6mos) MDV 12/12/2020 MMR 02/09/2010,09/02/2009 Td (Age >=7 Years) 11/16/1995 Tdap 08/28/2020,09/02/2009,07/26/2006 Varicella Vaccine 02/22/1984 Family History Medical History Relation Name Comments Alcoholism Brother Aidan Drug Abuse Brother Aidan Heart failure Brother Aidan hx drug addict ion, alcohol use Other Brother Aidan DVT, after MVA, 2005 Allergies Daughter 1 Yvette Anxiety disorder Daughter 1 Yvette Depression Daughter 1 Yvette Good Health Daughter 1 Yvette Good Health Daughter 2 Alcoholism Father Jordin COPD Father Jordin Depression Father Jordin Drug Abuse Father Jordin Heart failure Father Jordin Hyperlipidemia Father Jordin Hypertension Father Jordin Other Father Jordin tobacco Cancer-breast Maternal Grandmother Niru Deceas ed Anesthesia Problem Mother Kianna Nausea Anxiety disorder Mother Kianna COPD Mother Kianna Depression Mother Kianna Drug Abuse Mother Kianna Hyperlipidemia Mother Kianna Hypertension Mother Kianna Other Mother Kianna tobacco Thyroid Disease Mother Kianna Other Paternal Grandfather DVT Cancer-ovarian Paternal Grandmother Diabetes Paternal Grandmother Relation Name Status Comments Brother Aidan Daughter 1 Yvette Daughter 2 Father Jordin Maternal Grandmother Niru Mother Kianna Paternal Grandfather Paternal Grandmother Social History Tobacco Use Types Packs/Day Years Used Date Smoking Tobacco: Never Smokeless Tobacco: Never Tobacco Cessation:Counseling Given: Yes Comments:Never used but everyone in family smoked around me until she 16 Alcohol Use Standard Drinks/Week Comments Yes 0 (1 standard drink = 0.6 oz pur e alcohol) occassional PHQ-2 Answer Date Recorded PHQ-2 TOTAL SCORE 6 11/16/2022 Social Connections Answer Date Recorded Do you often feel lonely or isolated from those around you? 0 02/21/2024 Financial Resource Strain Answer Date R ecorded Difficulty of Paying Living Expenses 3 02/21/2024 Difficulty of Paying Living Expenses Not on file 02/21/2024 Food Insecurity Answer Date Recorded Do you worry your food will run out before you are able to buy more? 1 02/21/2024 Transportation Needs Answer Date Record ed Does lack of transportation keep you from medica l appointments? 1 02/21/2024 Does lack of transportation keep you from work, meetings or getting things that you need? 1 02/21/2024 Housing Stability Answer Date Recorded What is your housing situation today? 1 02/21/2024 Utilities Answer Date Recorded Do you have trouble paying f or utilities (for example, heat, electricity, water, phone)? 1 02/21/2024 Comments No Sex and Gender Information Value Date Recorded Sex Assigned at Not on file Legal Sex Female 5:54 AM [employer] OF [employer] Gender Identity Female 05/07/2020 9:57 AM CDT Sexual Orientation Straight 05/07/2020 9: 57 AM CDT Occupation Industry Job Start Date Job End Date Not on file Not on file Not on file Not on file Obstetrics History Para Term AB IAB SAB Ectopic Multiple Livin g Live Births 2 2 0 2 2 Date Outcome GA Total Labor Labor/2nd/3rd Weight Sex Type Anes PTL Ann A1 A5 Name Clin 2006 2009 Last Filed Vital Signs Vital Sign Reading Time Taken Comments Blood Pressure 124/84 07/10/2024 9:58 AM CDT Pulse 106 07/10/2024 9:58 AM CDT Temperature 36.8 C (98.2 F) 02/21/2024 9:14 AM [employer] OF [employer] Respiratory Rate 16 04/20/2022 2:43 PM [employer] OF [employer] Oxygen Saturation 96% 08/16/2023 7:25 AM CDT Inhaled Oxygen Concentration - - Weight 91.2 kg (201 lb) 07/10/2024 9:58 AM CDT Height 157.5 cm (5' 2) 09/06/2023 9:15 AM CDT Body Mass Index 36.76 09/06/2023 9:15 AM CDT Plan of Treatment Upcoming Encounters Date Type Department Care Team (Late st Contact Info) Description 09/11/2024 7:15 AM CDT Orders Only [facility] [address] [place] [address] [place], [place] 10/08/2024 7:30 AM CDT Procedure Only [facility] [address] [place] [address] Renetta Plummer, L Ac [address] [place] [address] 10/16/2024 8:30 AM CDT Procedure Only [facility] [address] [facility] [address] Renetta Plummer, [place] [address] [place] [address] 10/30/2024 7:30 AM CDT Procedure Only [facility] [address] [place] [address] Renetta Plummer, [place] [address] [place] [address] 11/13/2024 7:30 AM CDT Procedure Only [facility] [address] [place] [address] Renetta Plummer, [place] [address] [place] [address] 12/11/2024 7:30 AM CDT Procedure Only [facility] [address] [place] [address] Renetta Plummer, [place] [address] [place] [address] Health Maintenance Due Date Last Done Comments HIV for age 15-65 05/26/1994 Hepatitis C screening for age 18-79 05/26/1997 Hepatitis B series for 19+ (2 of 3 - 19+ 3-dose series) 09/30/2009 09/02/2009 Depression screening for age 12+ 11/18/2023 11/17/2022, 11/16/2022, 06/30/2022, Additional history exists COVID-19 vaccine series (2023- season) 2024 11/25/2023, 12/10/2022, 12/12/2020, Additional history exists BMI (ht and wt on same day) for age 18+ 09/05/2024 09/06/2023, 06/01/2022, 01/05/2022, Additional history exists Mammogram for age 45-75 08/07/2025 08/08/19 25, 09/01/2020, 08/28/2019, Additional history exists Pap test for age 21-65 08/27/2025 , 08/27/2020, 03/20/2015, Additional history exists Fecal testing sDNA-FIT (Cologuard) for age 45-75 06/10/2027 06/09/2024 Lipids for age 45-75 07/10/2029 07/10/2024, 03/29/2022, 11/17/2020, Additional history exists Tetanus booster 08/28/2030 08/28/2020, 08/21, 07/26/2006, Additional history exists (IA) Tdap Completed 08/28/2020, 08/21, 07/26/2006 Influenza Vaccine Completed 11/25/2023, , 12/12/2020, Additional history exists Pneumococcal series for age 6-49 Aged Out No longer eligible based on patient's age to complete this topic Goals Goal Patient Goal Type Associated Problems Recent Progress Patient-Stated? Author BLOOD PRESSURE-MA INTAINS BP LESS THAN 130/80 Blood Pressure No Gunjan Casey NP Procedures Procedure Name Priority Date/Time Associated Diagnosis Comments AMB EPIDURAL STEROID INJECTION Routine 08/21/2024 6:51 AM CDT Degeneration of intervertebral disc of lumbosacral region, unspecified whether pain present Lumbar disc herniation with radiculopathy XR MAMMO REILLY BILAT SCREEN Routine 08/07/2024 3:31 PM CDT Screening mammogram for breast cancer MR SPINE LUMBAR WO Routine 07/24/2024 7: 52 AM CDT Degeneration of intervertebral disc of lumbosacral region, unspecified whether pain present Lumbar disc herniation with radiculopathy LIPID PANEL W REFLEX MEASURED LDL Routine 07/10/2024 10:48 AM CDT Screening cholesterol level SEDIMENTATION RATE Routine 07/10/2024 10 :48 AM CDT Degeneration of intervertebral disc of lumbosacral region, unspecified whether pain present Lumbar disc herniation with radiculopathy C-REACTIVE PROTEIN Routine 07/10/2024 10 :48 AM CDT Degeneration of intervertebral disc of lumbosacral region, unspecified whether pain present Lumbar disc herniation with radiculopathy ANTINUCLEAR ANTIBODY BY IFA Routine 07/10/2024 10:48 AM CDT Degeneration of intervertebral disc of lumbosacral region, unspecified whether pain present Lumbar disc herniation with radiculopathy Arthralgia, unspecified joint RA QUANTITATIVE Routine 07/10/2024 10:48 AM CDT Degeneration of intervertebral disc of lumbosacral region, unspecified whether pain present Lumbar disc herniation with radiculopathy Arthralgia, unspecified joint CYCLIC CITRULLINE PEPTIDE Routine 07/10/2024 10:48 AM CDT Degeneration of intervertebral disc of lumbosacral region, unspecified whether pain present Lumbar disc herniation with radiculopathy Arthralgia, unspecified joint LYME SCREEN W/REFLEX Routine 07/10/2024 10:48 AM CDT Degeneration of intervertebral disc of lumbosacral region, unspecified whether pain present Lumbar disc herniation with radiculopathy Arthralgia, unspecified joint T4,FREE Routine 07/09/2024 12:21 PM CDT Hypothyroidism, unspecified type T3,FREE Routine 07/09/2024 12:21 PM CDT Hypothyroidism, unspecified type TSH Routine 07/09/2024 12:21 PM CDT Hypothyroidism, unspecified type IRON PLUS IRON BINDING CAP Routine 07/09/2024 12:21 PM CDT Hypothyroidism, unspecified type Chronic fatigue VITAMIN D 25 (DEFICIENCY) Routine 07/09/2024 12:21 PM CDT Vitamin D deficiency SDNA-FIT EXTERNAL (COLOGUARD) Routine 06/09/2024 8:00 AM CDT Screening for colorectal cancer EXPLOSIVE ORDNANCE DISPOSAL MANAGER THIN PREP PAP SCREEN IMAGED Routine 08/27/2020 11:12 AM CDT Screening for cervical cancer from Last 3 Months or Most Recently Relevant to Health Maintenance Results * XR MAMMO REILLY BILAT SCREEN (08/07/2024 3:31 PM CDT) Anatomical Region Laterality Modality BREASTS, Breast Left, Breast Right Bilateral Mammography Impressions 08/07/2024 3:53 PM CDT There is no radiographic evidence for malignancy. Recommend annual mammograms. MAMMOGRAM ASSESSMENT: ACR 1 Negative PATIENTS: You will also receive a letter with your examination results in an easy to read format. If you have questions about your results, please contact your referring provider. Narrative 08/07/2024 3:53 PM CDT For Patients: As a result of the Century Cures Act, medical imaging exams and procedure reports are released immediately into your electronic medical record. You may view this report before your referring provider. If you have questions, please contact your health care provider. XR MAMMO REILLY BILAT SCREEN [[id number]] CLINICAL HISTORY: This is an asymptomatic 44 y.o. patient. INDICATION FOR EXAM: Mammogram Screening. TECHNIQUE: CC and MLO views were obtained. This study was evaluated with the assistance of Computer-Aided Detection. Breast Tomosynthesis was used in interpretation. COMPARISON FILM: Yes 09/01/20 [facility] 08/28/19 [facility] FINDINGS: There are scattered areas of fibroglandular density. There are no dominant masses, suspicious micro calcifications or areas of architectural distortion. us Olamide LYNN MAMMO Final R esult * MR SPINE LUMBAR WO (07/24/2024 7:52 AM CDT) Anatomical Region Laterality Modality Spine, LUMBAR SPINE Magnetic Res onance 07/24/2024 9:21 AM CDT Impressions 07/24/2024 9:21 AM CDT 1. Similar moderate disc height loss at L5-S1 with surrounding Modic type 2 degenerative endplate signal. 2. At L5-S1, redemonstrated remote right hemilaminectomy and similar eccentric left posterior disc bulge mildly narrowing the left lateral recess. Dictated by Jacob Jackson MD @ 07/24/2024 9:21:49 AM (Electronically Signed) Narrative 07/24/2024 9:21 AM CDT For Patients: As a result of the Cures Act, medical imaging exams and procedure reports are released immediately into your electronic medical record. You may view this report before your referring provider. If you have questions, please contact your health care provider. INDICATION: Low back pain. TECHNIQUE: Multisequence multiplanar MRI of the lumbar spine without the use of intravenous contrast. COMPARISON: MRI lumbar spine dated 12/01/2020. FINDINGS: Normal vertebral alignment and stature. Moderate disc desiccation and loss at L5-S1 with surrounding Modic type 2 degenerative endplate signal. The conus medullaris terminates normally at the upper L2 level. T12-L1, L1-L2, and L2-L3: No significant spinal canal or neural foraminal stenosis. L3-L4: Mild facet joint arthrosis. No significant spinal canal or neural foraminal stenosis. L4-L5: Mild facet joint arthrosis. Shallow symmetric disc bulge. No significant spinal canal or neural foraminal stenosis. L5-S1: Remote right hemilaminectomy. Posterior disc bulge eccentric to the left with mild narrowing of the left lateral recess. Mild facet joint arthrosis. No high- grade spinal canal stenosis or significant neural foraminal narrowing. Procedure Note Melvin Jackson MD - 07/24/2024 For Patients: As a result of the Cures Act, medical imagingexams and procedure reports are released immediately into your electronicmedical record. You may view this report before your referring provider.If you have questions, please contact your health care provider. INDICATION: Low back pain. TECHNIQUE: Multisequence multiplanar MRI of the lumbar spine without the use ofintravenous contrast. COMPARISON: MRI lumbar spine dated 12/01/2020. FINDINGS: Normal vertebral alignment and stature. Moderate disc desiccation and lossat L5- S1 with surrounding Modic type 2 degenerative endplate signal. Theconus medullaris terminates normally at the upper L2 level. T12-L1, L1-L2, and L2-L3: No significant spinal canal or neural foraminalstenosis. L3-L4: Mild facet joint arthrosis. No significant spinal canal or neuralforaminal stenosis. L4-L5: Mild facet joint arthrosis. Shallow symmetric disc bulge. Nosignificant spinal canal or neural foraminal stenosis. L5-S1: Remote right hemilaminectomy. Posterior disc bulge eccentric to theleft with mild narrowing of the left lateral recess. Mild facet jointarthrosis. No high- grade spinal canal stenosis or significant neuralforaminal narrowing. IMPRESSION: 1. Similar moderate disc height loss at L5-S1 with surrounding Modic type2 degenerative endplate signal. 2. At L5-S1, redemonstrated remote right hemilaminectomy and similareccentric left posterior disc bulge mildly narrowing the left lateralrecess. Dictated by Jacob Jackson MD @ 07/24/2024 9:21:49 AM (Electronically Signed) Olamide LYNN MR Final R esult * SEDIMENTATION RATE (07/10/2024 10:48 AM CDT) Pathologist [facility] SED RATE BY MODIFIED WESTERGREN 2 < OR = 20 mm/h [facility]es Mu[facility]oz Blood BLOOD SPECIMEN / Unknown 07/10/2024 10:48 AM CDT 07/10/2024 10:48 AM CDT Olamide LYNN HEMATOLOGY Final R esult [employer] [facility] [address] [place] [address], [facility] [address] [place] [address] * ANTINUCLEAR ANTIBODY BY IFA (07/10/2024 10:48 AM CDT) [facility] JUAN RAMON SCREEN, IFA NEGATIVE NEGATIVE [facility] Comment: JUAN RAMON IFA is a first line screen for detecting the presence of up to approximately 150 autoantibodies in various autoimmune diseases. A negative JUAN RAMON IFA result suggests an JUAN RAMON-associated autoimmune disease is not present at this time, but is not definitive. If there is high clinical suspicion for Sjogren's syndrome, testing for anti-SS-A/Ro antibody should be considered. Anti-Khloe-1 antibody should be considered for clinically suspected inflammatory myopathies. AC-0: Negative International Consensus on JUAN RAMON Patterns (https://doi.org/10.1515/wzxl-9679-7821) For additional information, please refer to http://education.TokBox/faq/ANP692 (This link is being provided for informational/ educational purposes only.) Blood BLOOD SPECIMEN / Unknown 07/10/2024 10:48 AM CDT 07/10/2024 10:48 AM CDT Olamide LYNN CHEMISTRY Final R esult [employer] [facility] [address] [place] [address], [facility] [address] [place] [address] * (ABNORMAL) LIPID PANEL W REFLEX MEASURED LDL (07/10/2024 10:48 AM CDT) [facility] CHOLESTEROL, TOTAL 183 <200 mg/dL [facility] [place] HDL CHOLESTEROL 44(L) > OR = 50 mg/dL [facility] TRIGLYCERIDES 115 <150 mg/dL [facility] Toni LDL-CHOLESTEROL 116(H) mg/dL (calc) [facility] Mu[facility]oz Comment: Reference range: <100 Desirable range <100 mg/dL for primary prevention; <70 mg/dL for patients with CHD or diabetic patients with > or = 2 CHD risk factors. LDL-C is now calculated using the Steven-Cox calculation, which is a validated novel method providing better accuracy than the Friedewald equation in the estimation of LDL-C. Steven SS et al. TOOTIE. 2013;310(19): 2759-4135 (http://education.TokBox/faq/CGC639) CHOL/HDLC RATIO 4.2 <5.0 (calc) [facility] NON HDL CHOLESTEROL 139(H) <130 mg/dL (calc) [facility] Comment: For patients with diabetes plus 1 major ASCVD risk factor, treating to a non-HDL-C goal of <100 mg/dL (LDL-C of <70 mg/dL) is considered a therapeutic option. Blood BLOOD SPECIMEN / Unknown 07/10/2024 10:48 AM CDT 07/10/2024 10:48 AM CDT Olamide LYNN CHEMISTRY Final R esult Performing Organization Address City/[facility]/ZIP Co de Phone Number [employer] [address] [place] [address], [place] [phone] [employer] [facility] [facility] [address] [place] [address] * CYCLIC CITRULLINE PEPTIDE (07/10/2024 10:48 AM CDT) CYCLIC CITRULLINATED PEPTIDE (CCP) AB (IGG) <16 UNITS [employer] Toni Comment: Reference Range Negative: <20 Weak Positive: 20-39 Moderate Positive: 40-59 Strong Positive: >59 Blood BLOOD SPECIMEN / Unknown 07/10/2024 10:48 AM CDT 07/10/2024 10:48 AM CDT us Olamide LYNN SEND OUTS Final R esult [employer] [facility] [address] [employer] [place] [address], [place] [phone] [employer] [facility] [address] [facility] [place] [address] * LYME SCREEN W/REFLEX (07/10/2024 10:48 AM CDT) LYME AB, SCREEN < or = 0.90 index [facility], Comment: REFERENCE RANGE: < OR = 0.90 Index Index Interpretation < OR = 0.90 NEGATIVE 0.91 - 1.09 EQUIVOCAL > OR = 1.10 POSITIVE This assay measures Lyme Disease (Borrelia burgdorferi) IgG plus IgM antibodies; it does not distinguish results that are both IgG and IgM positive from results that are either IgG or IgM positive. As recommended by the Centers for Disease Control and Prevention (CDC), all samples with positive or equivocal results in this screening assay will be tested using separate supplemental Lyme IgG and IgM immunoassays. Positive or equivocal screening assay results should not be interpreted as truly positive until verified as such using the supplemental assays. Screening and/or supplemental tests for Lyme disease antibodies may be falsely negative in early stages of Lyme disease, including the period when erythema migrans is apparent. These assays may be falsely positive in patients with other spirochetal diseases (e.g., syphilis) or infectious mononucleosis. Blood BLOOD SPECIMEN / Unknown 07/10/2024 10:48 AM CDT 07/10/2024 10:48 AM CDT us Olamide LYNN SEND OUTS Final R esult [facility] [place] [address] [place] [address], [facility], [address] [place] [address] * RA QUANTITATIVE (07/10/2024 10:48 AM CDT) Pathologist [facility] RHEUMATOID FACTOR <10 <14 IU/mL [facility]-Reza Muñoz Blood BLOOD SPECIMEN / Unknown 07/10/2024 10:48 AM CDT 07/10/2024 10:48 AM CDT us Olamide LYNN SEND OUTS Final R esult Performing Organization Address City/[facility]/ZIP Co de Phone Number [employer] [address] [place] [address], [facility] [address] [place] [address] * C-REACTIVE PROTEIN (07/10/2024 10:48 AM CDT) C-REACTIVE PROTEIN <3.0 <8.0 mg/L [facility] orestes Muñoz Blood BLOOD SPECIMEN / Unknown 07/10/2024 10:48 AM CDT 07/10/2024 10:48 AM CDT Olamide LYNN CHEMISTRY Final R esult Performing Organization Address [facility] Co de Phone Number [employer] [address] [address], [employer] [facility] [address] [place] [address] * VITAMIN D 25 (DEFICIENCY) (07/09/2024 12:21 PM CDT) Pathologist [facility] VITAMIN D,25-OH,TOTAL,IA 67 30 - 100 ng/mL [employer] juan ramon Muñoz Comment: Vitamin D Status 25-OH Vitamin D: Deficiency: <20 ng/mL Insufficiency: 20 - 29 ng/mL Optimal: > or = 30 ng/mL For 25-OH Vitamin D testing on patients on D2-supplementation and patients for whom quantitation of D2 and D3 fractions is required, the QuestAssureD(TM) 25-OH VIT D, (D2,D3), LC/MS/MS is recommended: order code 18948 (patients >2yrs). See Note 1 Note 1 For additional information, please refer to http://education.TokBox/faq/NPB349 (This link is being provided for informational/ educational purposes only.) Blood BLOOD SPECIMEN / Unknown 07/09/2024 12:21 PM CDT 07/09/2024 12:21 PM CDT Hayden Palomino MD SEND OUTS Final Resul t Performing Organization Address City/[facility]/ZIP Co de Phone Number [employer] [facility] [address] [place] [address], [place] [phone] [facility] [address] [place] [address] * TSH (07/09/2024 12:21 PM CDT) TSH 2.79 mIU/L [facility]-Wo od Toni Comment: Reference Range > or = 20 Years 0.40-4.50 Ranges First trimester 0.26-2.66 Second trimester 0.55-2.73 Third trimester 0.43-2.91 Blood BLOOD SPECIMEN / Unknown 07/09/2024 12:21 PM CDT 07/09/2024 12:21 PM CDT Hayden Palomino MD CHEMISTRY Final Resul t Performing Organization Address [facility] Co de Phone Number [employer] [facility] [address] [place] [address], [place] [phone] [facility] [address] [place] [address] * IRON PLUS IRON BINDING CAP (07/09/2024 12:21 PM CDT) IRON, TOTAL 124 40 - 190 mcg/dL [facility]Wo [facility] Toni IRON BINDING CAPACITY 304 250 - 450 mcg/dL (calc) [facility] % SATURATION 41 16 - 45 % (calc) [facility] Blood BLOOD SPECIMEN / Unknown 07/09/2024 12:21 PM CDT 07/09/2024 12:21 PM CDT Hayden Palomino MD CHEMISTRY Final Resul t Performing Organization Address City/[facility]/ZIP Co de Phone Number [employer] [facility] [address] [place] [address], [place] [phone] [facility] [address] [place] [address] * T3,FREE (07/09/2024 12:21 PM CDT) T3, FREE 3.1 2.3 - 4.2 pg/mL [facility]-Jon kojo Muñoz Blood BLOOD SPECIMEN / Unknown 07/09/2024 12:21 PM CDT 07/09/2024 12:21 PM CDT Hayden Palomino MD CHEMISTRY Final Resul t [facility] [employer] [facility] [address] [place] [address], [place] [phone] [facility] [address] [place] [address] * T4,FREE (07/09/2024 12:21 PM CDT) Pathologist [facility] T4, FREE 0.9 0.8 - 1.8 ng/dL [facility]-Dontrell Muñoz Blood BLOOD SPECIMEN / Unknown 07/09/2024 12:21 PM CDT 07/09/2024 12:21 PM CDT Hayden Palomino MD CHEMISTRY Final Resul t [facility] [employer] [facility] [address] [place] [address], [place] [phone] [employer] [employer] [facility] [address] [place] [address] * SDNA-FIT EXTERNAL (COLOGUARD) [[id number]] (06/09/2024 8:00 AM CDT) Pathologist [facility] NONINV COLON CA DNA+OCC BLD SCRN STL-IMP Negative Negative 06/15/2024 7:59 AM CDT [employer] (CLIA #:[id number]) Comment: The Cologuard (TM) test was performed on this specimen. NEGATIVE TEST RESULT. A negative Cologuard result indicates a low likelihood that a colorectal cancer (CRC) or advanced adenoma (adenomatous polyps with more advanced pre-malignant features) is present. The chance that a person with a negative Cologuard test has a colorectal cancer is less than 1 in 1500 (negative predictive value >99.9%) or has an advanced adenoma is less than 5.3% (negative predictive value 94.7%). These data are based on a prospective cross-sectional study of 10,000 individuals at average risk for colorectal cancer who were screened with both Cologuard and colonoscopy. (Gabriela Garcia. et al, N Engl J Med 2014;370(14):1286- 1297) The normal value (reference range) for this assay is negative. COLOGUARD RE-SCREENING RECOMMENDATION: Periodic colorectal cancer screening is an important part of preventive healthcare for asymptomatic individuals at average risk for colorectal cancer. Following a negative Cologuard result, the [place] Cancer Society and U.S. Multi-Society Task Force screening guidelines recommend a Cologuard re-screening interval of 3 years. References: [place] [employer] Society Guideline for Colorectal Cancer Screening: https://www.cancer.org/cancer/ysahu-qvlscm-axjmmt/rljipxyhq-rqomqmgiw-iedutgx/ac s-rec ommendations.html.; Jerson ORTIZ, Leslie BLACKMAN, Jas ValdesK, Colorectal Cancer Screening: Recommendations for Physicians and Patients from the U.S. Multi-Society Task Force on Colorectal Cancer Screening , Am J Gastroenterology 2017; 112:8977-5858. TEST DESCRIPTION: Composite algorithmic analysis of stool DNA-biomarkers with hemoglobin immunoassay. Quantitative values of individual biomarkers are not reportable and are not associated with individual biomarker result reference ranges. Cologuard is intended for colorectal cancer screening of adults of either sex, 45 years or older, who are at average-risk for colorectal cancer (CRC). Cologuard has been approved for use by the U.S. FDA. The performance of Cologuard was established in a cross sectional study of average-risk adults aged 50-84. Cologuard performance in patients ages 45 to 49 years was estimated by sub-group analysis of near-age groups. Colonoscopies performed for a positive result may find as the most clinically significant lesion: colorectal cancer [4.0%], advanced adenoma (including sessile serrated polyps greater than or equal to 1cm diameter) [20%] or non- advanced adenoma [31%]; or no colorectal neoplasia [45%]. These estimates are derived from a prospective cross-sectional screening study of 10,000 individuals at average risk for colorectal cancer who were screened with both Cologuard and colonoscopy. (Gabriela Monge et al, N Engl J Med 2014;370(14):7351-3379.) Cologuard may produce a false negative or false positive result (no colorectal cancer or precancerous polyp present at colonoscopy follow up). A negative Cologuard test result does not guarantee the absence of CRC or advanced adenoma (pre-cancer). The current Cologuard screening interval is every 3 years. ([place] [employer] Society and U.S. Multi-Society Task Force). Cologuard performance data in a 10,000 patient pivotal study using colonoscopy as the reference method can be accessed at the following location: www.FetchDog/results. Additional description of the Cologuard test process, warnings and precautions can be found at www.Gold CapitalogVKernel Corporationrd.com. Stool specimen (specimen) (Rectum) 06/09/2024 8:00 AM CDT 06/12/2024 7:16 AM CDT Olamide LYNN URINE Final R esult [facility] (CLIA #:[id number]) [address] [place] [address], * EXPLOSIVE ORDNANCE DISPOSAL MANAGER THIN PREP PAP SCREEN IMAGED (08/27/2020 11:12 AM CDT) Case Report Gynecologic Cytology Report Case: [id number] Authorizing Provider: Heena Menezes Collected: 08/27/2020 1112 MD Evens Ordering Location: [facility] Received: 08/27/2020 1117 Clinic First Screen: Char Wise Rescreen: Tesha Greene Specimen: EXPLOSIVE ORDNANCE DISPOSAL MANAGER ThinPrep Vial Screening, Cervical 09/08/2020 2:53 PM CDT [facility] INTERPRETATION/ RESULT NEGATIVE FOR INTRAEPITHELIAL LESION OR MALIGNANCY (NIL) (none) 09/08/2020 2:53 PM CDT [facility] at 1453 CDT ORGANISM(S) Fungal organisms morphologically consistent with Nela species 09/08/2020 2:53 PM CDT [facility] SPECIMEN ADEQUACY Satisfactory for evaluation No endocervical component seen 09/08/2020 2:53 PM CDT [facility] HPV REQUEST HPV and PAP 09/08/2020 2:53 PM CDT [facility] Date of LMP 08/12/2020 09/08/2020 2:53 PM CDT [facility] Last Pap Date 03/20/15 09/08/2020 2:53 PM CDT [facility] Last Pap Result NIL 2:53 PM CDT [facility] Abnormal Pap or [place] Bx in last 5 years No 09/08/2020 2:53 PM CDT [facility] Menstrual Status Regular Periods 09/08/2020 2:53 PM CDT [facility] [place] Bx Done Today No 09/08/2020 2:53 PM CDT [facility] Additional Information None given 09/08/2020 2:53 PM CDT [facility] Comment: Cytology is screened at [facility] - [address], [place] [address] and [facility] - [address] [place] [address], [place] [address] and [facility] - [address] [place] [address] Interpreted at [facility] - [address], [place] [address] Automated Review Successful 09/08/2020 2:53 PM CDT [facility] Comment:Specimen processed s uccessfully by automated leaf blender device, ThinPrep Imaging System, [employer] ANCILLARY TESTING EXPLOSIVE ORDNANCE DISPOSAL MANAGER HPV Ordered, Please see separate report 09/08/2020 2:53 PM CDT [facility] Note The pap test is a screening technique, not a diagnostic procedure. It is used primarily to screen for squamous cancers and precursor lesions. Published studies have shown that it is subject to both false negative and false positive results. The pap test should not be used as the sole means to diagnose or exclude pre-malignant and malignant lesions. 09/08/2020 2:53 PM CDT [facility] [employer] LABORATORY-C ENTRAL LABORATORY Other (Cervical) Non-Blood / Unknown 08/27/2020 11:12 AM CDT 08/27/2020 11:17 AM CDT us Heena Menezes MD PATHOLOGY/CYTOLOG Y Final Result [facility] [address] [place] [address], from Last 3 Months or Most Recently Relevant to Health Maintenance Insurance [facility] FED EMP Advance Directives * Full Code (Latest Code Status on File) Date Activated Date Inactivated Comments 12/19/2018 7:32 AM 12/19/2018 3:44 PM Care Teams Vein Pumper Relationship Specialty Start Date End Date Olamide Martinez PA [address] [place] [address] PCP - General Physician Classroom Paraprofessional 05/11/18
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
== END 2024-08-21 07:57 | disposition home or self-care (01) ==
PROVIDERS: PCP Physician Assistant Medical; Visit Provider Family Medicine
DX: M54.16 Radiculopathy, lumbar region (principal); M51.369 Other intervertebral disc degeneration, lumbar region without mention of lumbar back pain or lower extremity pain
CPT/HCPCS: 64483; J1100; Q9966

== ENCOUNTER 2024-11-12 09:54 | Outpatient (CLI) | payer BC, SELFPAY ==
--- NOTE | 2024-11-12 10:00 | CRLHL7_ITS ---
For Patients: As a result of the Century Cures Act, medical imaging exams and procedure reports are released immediately into your electronic medical record. You may view this report before your referring provider. If you have questions, please contact your health care provider. Indication: LUMBAR PAIN Technique: Four views of the lumbar spine, including flexion and extension views. Comparison: None. Findings: Status post cholecystectomy. Moderate stool burden is seen in the colon. Left pelvic vascular stent. Intrauterine device projects over the pelvis. No acute displaced fracture or malalignment, without significant change on flexion and extension views. Moderate facet arthropathy at L5-S1 with possible mild neural foraminal narrowing at this level. Impression: No acute displaced fracture or malalignment, without significant change on flexion and extension views. Moderate facet arthropathy at L5-S1 with possible mild neural foraminal narrowing at this level. Dictated by Prasanna Cortez MD @ 11/12/2024 11:12:14 AM (Electronically Signed)
== END 2024-11-12 09:55 | disposition home or self-care (01) ==
PROVIDERS: PCP Physician Assistant Medical; Referring Provider Orthopaedic Surgery Orthopaedic Surgery of the Spine; Visit Provider Orthopaedic Surgery Orthopaedic Surgery of the Spine
DX: M54.50 Low back pain, unspecified (principal); M51.379 Other intervertebral disc degeneration, lumbosacral region without mention of lumbar back pain or lower extremity pain; M51.16 Intervertebral disc disorders with radiculopathy, lumbar region
CPT/HCPCS: 72110